=== PATIENT | male | born 1980 | race Caucasian/White ===

== ENCOUNTER 2022-02-25 03:41 | Emergency (ER) | payer OTHER ==
[~2022-02-25 03:41] MED LIST: NAPROXEN500 MG PO
[2022-02-25 04:07] LABS: BASOPHIL 0.9 % (0-2); EOSINOPHIL 3.6 % (0-5); HCT 49.8 % (42.0-52.0); HGB 17.3 g/dl (13.2-18.0); LYMPHOCYTE 29.8 % (15-48); MCH 32.8 pg (25.0-31.0); MCHC 34.7 g/dL (32.0-36.0); MCV 94.5 fL (78.0-100.0); MONOCYTE 9.6 % (0-12); MPV 10.8 fL (6.0-9.5); NEUTROPHIL 55.2 % (41-80); NRBC 0; PLT 216 K/uL (150-400); RBC 5.27 M/uL (4.70-6.00); RDW 13.1 % (11.5-14.0); WBC 9.1 K/uL (4.0-10.5)
[2022-02-25 04:19] LABS: ALBUMIN 3.4 g/dL (3.4-5.0); BILIRUBIN - TOTAL 0.2 mg/dL (0.2-1.0); BUN/CREAT RATIO (CALC) 13.9 RATIO; CREATININE 1.01 mg/dL (0.67-1.17); GLOBULIN (CALCULATION) 3.3 g/dL; POTASSIUM 3.6 mmol/L (3.5-5.1); TOTAL PROTEIN 6.7 g/dL (6.4-8.2)
[2022-02-25 05:07] LABS: CORONAVIRUS 2019 SARS-COV-2 NEGATIVE (NEGATIVE); INFLUENZA A NAA NEGATIVE (NEGATIVE)
[2022-02-25] MEDS ORDERED: OMEPRAZOLE40 MG PO (05:08)
== END 2022-02-25 05:38 | disposition home or self-care (01) ==
LOC: FER 03:41
PROVIDERS: Internal Medicine
DX: R07.89 Other chest pain (principal); K21.9 Gastro-esophageal reflux disease without esophagitis; F17.210 Nicotine dependence, cigarettes, uncomplicated; Z20.822 Contact with and (suspected) exposure to COVID-19; Z28.310 Unvaccinated for COVID-19
CPT/HCPCS: 36415; 71045; 80053; 83690; 84145; 84484; 85025; 93005; U0002